=== PATIENT | male | born 1965 | race Caucasian/White ===

== ENCOUNTER → 2020-10-25 15:11 | Outpatient (CLI) | payer BC, SELFPAY ==
--- NOTE | ~2020-10-25 | MR_ITS ---
EXAMINATION: MR knee RT wo con DATE: 10/25/2020 15:52 INDICATION: 4 months of medial right knee pain. TECHNIQUE: Magnetic resonance imaging (MRI) of the right knee was performed without intravenous contr ast. Sequences included coronal PD-weighted FSE, coronal PD-weighted FS FSE, sagittal T2-weighted FS E, sagittal PD-weighted FS FSE and axial PD weighted fat saturated FSE. COMPARISON: None. FINDINGS: Medial compartment: Complex tear at the junction of the body and posterior horn of the medial meniscus with both a longit udinal horizontal tear plane as well as a radial tear plane which extends to the inner half of the me niscus. Diffuse mild partial-thickness cartilage loss along the medial tibial plateau and weightbeari ng medial femoral condyle with scattered shallow chondral surface regularity. No degenerative subchon dral changes. Lateral compartment: Lateral meniscus is normal. Additional partial thickness cartilage loss with chondral surface irregul arity along the anterior weightbearing lateral femoral condyle. Patellofemoral compartment: Articular cartilage is normal. Ligaments and tendons: Anterior and posterior cruciate ligaments are normal. The medial collateral ligament and fibular dick ateral ligament complex are normal. Patellar tendon is normal. Mild to moderate distal quadriceps ten dinopathy without discrete tear. The visualized medial and lateral hamstring tendons as well as the i liotibial band are normal. Fluid: Physiologic amount of fluid in the joint space. 4 mm low signal intensity loose osteochondral body in the recess posterior to the posterior cruciate ligament. Osseous/other: Small low signal intensity bone island at the lateral tibial plateau. Normal marrow signal. No fractu re or abnormal marrow replacing process. IMPRESSION: 1. Complex tear at the junction of the body and posterior horn of the medial meniscus. 2. Mild osteoarthritis with regions of moderate grade chondromalacia in the medial and lateral compar tments. 3. Mild to moderate distal quadriceps tendinopathy without discrete tear.. Reviewed, dictated and finalized at location A. IMPRESSION: 1. Complex tear at the junction of the body and posterior horn of the medial me niscus. 2. Mild osteoarthritis with regions of moderate grade chondromalacia in the med ial and lateral compartments. 3. Mild to moderate distal quadriceps tendinopathy without discrete tear..
== END ==
PROVIDERS: Visit Provider Orthopaedic Surgery
DX: S83.231A Complex tear of medial meniscus, current injury, right knee, initial encounter (principal); M17.11 Unilateral primary osteoarthritis, right knee; M94.261 Chondromalacia, right knee
CPT/HCPCS: 73721

== ENCOUNTER → 2020-12-21 04:36 | Outpatient (CLI) | payer BC, SELFPAY ==
[2020-12-21 18:46] LABS: SARS-CoV-2 RNA PCR Negative
== END ==
PROVIDERS: Visit Provider Orthopaedic Surgery
DX: Z01.812 Encounter for preprocedural laboratory examination (principal); Z20.822 Contact with and (suspected) exposure to COVID-19
CPT/HCPCS: C9803; U0003; U0005

== ENCOUNTER 2020-12-24 00:52 | Day surgery (SDC) | payer BC, SELFPAY ==
[2020-12-14 08:40] VITALS: BMI 28.3
--- NOTE | 2020-12-21 16:02 | WPDANESEPPF ---
Anes - Initial Pre Proc Eval Procedure: Operation Date: 12/24/20 10:30 Proposed Procedures p Right Knee Arthroscopy, Partial Meniscectomy - Kvng Kee MD Date/Time: 12/21/20 16:02 Surgeon: Kvng Kee MD Pre Op Diagnosis: right knee medial meniscal tear Patient Data Age: 55 Gender: M Height: 1.85 m Weight: 97.52 kg Allergies Allergy/AdvReac Type Severity Reaction Status Date / Time aspirin Allergy Severe Hives Verified 12/24/20 08:40 caffeine Allergy Intermediate PALPITATION Verified 12/24/20 08:40 S Home Medications Medication Instructions Recorded Confirmed Type multivitamin 1 tablet PO DAILY 09/05/20 12/24/20 History loratadine [Claritin] 10 mg PO DAILY 12/14/20 12/24/20 History omega-3 fatty acids-vitamin E 1 cap PO DAILY 12/14/20 12/24/20 History [Fish Oil] rivaroxaban 10 mg tablet 10 mg PO DAILY #14 tablet 12/18/20 12/18/20 Rx Patient hx anesthesia problems: none Family hx anesthesia problems: none PMFSH Past Medical History Medical History Arthritis of knee, right Surgical History Surgical History H/O left knee surgery left ACL 2011 Social History Social History Smoking status: Never smoker Alcohol intake: current Drinks per week: 2 Substance use: never Substance use type: does not use Living arrangements: with family Gender identity (if verbalized by the patient): Male Spiritual care concerns: No Anes - Eval Final PreProcedure Day of Procedure 12/21/20 16:02 Patient weight: overweight Heart: regular rate and rhythm Lungs: clear to auscultation and normal air movement Airway: Mallampati scale class II Neurological: alert and oriented Last oral intake: >/= 8 hours ASA classification: II Emergent: no Anesthetic plan: proceed Anesthesia type and monitoring: general LMA Informed Consent: The patient's anesthetic plan and its attendant risks and benefits were discussed with the patient/family/POA. Questions were solicited and answers provided to the satisfaction of the patient/family/POA.
[2020-12-24] VITALS (8 sets, daily range): BP systolic 125–139; BP diastolic 76–92; PULSE 52–79; RESP 12–19; TEMP 36.1–36.2; O2SAT 99–100; BMI 27.9
[2020-12-24] MEDS: ACETAMINOPHEN 500 MG TABLET 1000 MG PO (08:47)
[2020-12-24] MEDS: LACTATED RINGERS 1,000 ML 30 ML IV CONT ×2 (09:14→11:34)
--- NOTE | 2020-12-24 09:54 | WPDHPUPDATE1 ---
History and Physical Update Update Date/Time: 12/24/20 09:54 History and Physical has been reviewed, including an updated exam of the patient. There are NO changes in the patient's condition. Risks, benefits, and alternatives have been discussed and questions answered. Patient agrees to proceed with procedure.
[2020-12-24] MEDS: ceFAZolin 2 GM/D5W 50 ML 2 GM/50 ML BAG IVPB (10:37)
--- NOTE | 2020-12-24 11:35 | W.PM.PROC2 ---
Procedure Note - Detailed Date of Procedure 12/24/20 Pre-op Diagnosis right knee medial meniscal tear Post-op Diagnosis same Procedure Performed Right knee arthroscopy, partial medial meniscectomy Surgeon Kvng Kee MD Anesthesia general Indications See op note Description of Procedure The patient was identified and proper site identified. He was taken to the operating room and transferred to the OR table placing her supine taking care to pad the torso and extremities. After general anesthetic induction and intubation, a nonsterile tourniquet was placed high on the right thigh but was not used. The right lower extremity was positioned, prepped and draped in usual sterile fashion. 10 cc of 1% lidocaine was injected into the subcutaneous tissue in the area of the portals at start of the procedure, and an additional 10 at the end. The portals were established and the arthroscopy was carried out. Articular cartilage in all three compartments was inspected. Most pronounced changes were medially followed by anteriorly and then laterally. In all three compartments a grade 2 and three changes extensively. Loose fibrillated articular cartilage was gently debrided. Lateral meniscus was in continuity. Anterior posterior cruciate ligaments were intact. There is a medial plica which was resected as well as some focal medial synovitis overlying the anterior portion of the medial meniscus. Medial meniscus itself had complex tearing from the posterior horn into the midbody. This was debrided back to a stable rim with basket forceps and a shaver. Arthrocare Wand was used for hemostasis. The knee was flushed with a copious amount of arthroscopic fluid and equipment was removed. Portals were closed with three O nylon suture and a sterile dressing was applied. He tolerated the procedure well, was awakened, extubated and taken to recovery area in stable condition. There were no known intraoperative complications. Estimated blood loss was negligible. He received perioperative antibiotics. Estimated Blood Loss 20 Tourniquet Time 0 Drains No Packing No Pathology none sent Complications No immediate complications Condition stable Disposition PACU
== END 2020-12-24 13:14 | disposition home or self-care (01) ==
PROVIDERS: PCP Emergency Medicine; Visit Provider Orthopaedic Surgery
PROC: (CPT 29870; principal; 2020-12-24 10:30)
DX: M23.321 Other meniscus derangements, posterior horn of medial meniscus, right knee (principal); M65.861 Other synovitis and tenosynovitis, right lower leg; M17.11 Unilateral primary osteoarthritis, right knee; Z79.01 Long term (current) use of anticoagulants
CPT/HCPCS: 29881; A9270; J0690; J1100; J2250; J2405; J2704; J3010; J7120

== ENCOUNTER 2025-04-29 17:10 | Emergency (ER) | payer BC, SELFPAY ==
--- NOTE | ~2025-04-29 | XR_ITS ---
EXAMINATION: XR shoulder LT min 2V, 04/29/2025 17:48 CDT HISTORY: pain COMPARISON: No comparisons available. Findings: No acute fracture or malalignment. No significant degenerative changes. Soft tissues unremarkable. Impression: No acute fracture or malalignment. Reviewed, dictated and finalized at location P. Impression: No acute fracture or malalignment.
[2025-04-29 17:16] VITALS: BP 156/74; PULSE 81; RESP 18; TEMP 36.6; O2SAT 100
--- NOTE | 2025-04-29 17:19 | ED_ITS ---
HPI - Extremity Injury (Upper) General Chief Complaint: Extremity Injury, Upper Stated Complaint: left shoulder injury Time Seen by Provider: 04/29/25 17:13 History of Present Illness HPI narrative: 60-year-old otherwise healthy male presenting to the emergency depart with left shoulder pain. Patient states his foot slipped while he was getting out of a grain bin any hung on with his left arm and felt a potential tear. Has significant pain and now restricted range of motion. Took Tylenol prior to arrival with some mild improvement. Elbow and wrist without any injury. Full outboard system operator strength. Denies any paresthesias or numbness. Pain is localized to the anterior portion of left shoulder and he has restricted range of motion with forward flexion and abduction. No previous injuries to the shoulder or any previous fractures/surgery to this area. Related Data Home Medications ?Medication ?Instructions ?Recorded ?Confirmed ?Last Taken ?Type multivitamin 1 tablet PO DAILY 09/05/20 0 03/18/21 12/21/20 History loratadine 10 mg tablet (Claritin) 10 mg PO DAILY 12/0403/18/21 12/22/20 History omega-3 fatty acids-vitamin E 1 cap PO DAILY 12/14/20 03/18/21 12/21/20 History 1,000 mg capsule Allergies Allergy/AdvReac Type Severity Reaction Status Date / Time aspirin Allergy Severe Hives Verified 04/29/25 17:18 caffeine Allergy Intermediate PALPITATION Verified 04/29/25 17:18 S Review of Systems Review of Systems: As reviewed above in HPI [facility] Past Medical History Medical History Arthritis of knee, right Surgical History Surgical History History of arthroscopy of right knee Partial medial meniscectomy December 24, 2020 H/O left knee surgery left ACL 2010 Social History Social History Smoking status: Never smoker Alcohol intake: current Drinks per week: 2 Substance use: never Substance use type: does not use Living arrangements: with family Occupation/Education: occupation Gender identity (if verbalized by the patient): Male Spiritual care concerns: No Exam Narrative: GENERAL: [Well-appearing, well-nourished, and in no acute distress.] HEAD: [Normocephalic, atraumatic.] EYES: [PERRLA and EOMI.] ENT: Nares clear, no rhinorrhea or epistaxis. Mucous membranes moist. NECK: Supple. CHEST: [Clear to auscultation. No respiratory distress.] HEART: [Regular rate and rhythm]. No murmur heard. [Normal peripheral pulses.] ABDOMEN: [Soft, nondistended], [nontender], [No rigidity or guarding] EXTREMITIES: Tenderness to palpation over the anterior left shoulder with restricted passive and active range of motion with forward flexion and abduction causing significant pain. No pain over the scapula or the midline spine. Distal neuro vasculature intact with 2+ radial pulses and good outboard system operator strength. Able to range the elbow and wrist without difficulty. No overlying skin changes or step-offs. SKIN: Warm, dry, no rash. NEURO: [No focal deficits]. Alert and oriented [x3.] PSYCH: [Normal mood and affect.] Course Vital Signs Vital signs: Vital Signs Temperature 36.6 C 04/29/25 17:16 Pulse Rate 81 04/29/25 17:16 Respiratory Rate 18 04/29/25 17:16 Blood Pressure 156/74 H 04/29/25 17:16 Pulse Oximetry 100 04/29/25 17:16 Oxygen Delivery Room Air 04/29/25 17:16 Temperature 36.6 C 04/29/25 17:16 Pulse Rate 81 04/29/25 17:16 Respiratory Rate 18 04/29/25 17:16 Blood Pressure 156/74 H 04/29/25 17:16 Pulse Oximetry 100 04/29/25 17:16 Oxygen Delivery Room Air 04/29/25 17:16 MDM - Extremity Injury (Upper) MDM Narrative Medical decision making narrative: 60-year-old otherwise healthy male presenting to the emergency depart with left shoulder pain. Patient states his foot slipped while he was getting out of a grain bin any hung on with his left arm and felt a potential tear. Has significant pain and now restricted range of motion. Took Tylenol prior to arrival with some mild improvement. Elbow and wrist without any injury. Full outboard system operator strength. Denies any paresthesias or numbness. Pain is localized to the anterior portion of left shoulder and he has restricted range of motion with forward flexion and abduction. No previous injuries to the shoulder or any previous fractures/surgery to this area. Tenderness to palpation over the anterior left shoulder with restricted passive and active range of motion with forward flexion and abduction causing significant pain. No pain over the scapula or the midline spine. Distal neuro vasculature intact with 2+ radial pulses and good outboard system operator strength. Able to range the elbow and wrist without difficulty. No overlying skin changes or step-offs. Patient is hemodynamically stable. Exam findings concerning for potential rotator cuff injury versus less likely fracture/dislocation. Patient given intramuscular Toradol and Dilaudid and x-rays obtained. X-ray showed no acute abnormalities. Patient's symptoms consistent with rotator cuff injury or pathology. Pain improved with treatments but limited range of motion still present. He called his own orthopedic doctor and has an appointment on Thursday with Dr. Dsouza's office. Patient given pain control medications and safe for discharge home at this time. Medical Records Attestation: I reviewed the patient's medical records. Imaging Data Attestation: I personally reviewed and interpreted this imaging study as follows: My impression: Impressions Shoulder X-Ray 04/29/25 18:00 Impression: No acute fracture or malalignment. Discharge Plan Discharge Clinical Impression: Acute shoulder pain, Rotator cuff injury Patient Disposition: Home Condition: Stable Instructions: Antibiotic Form, Rotator Cuff Injury (ED), Rotator Cuff Injury Exercises (DC), Shoulder Immobilizer (ED) Additional Instructions: X-ray shows no bony abnormalities or malalignment so I do suspect that you injury is in the rotator cuff today based on exam and history. We will send you home with pain medicines to control the pain and swelling. Wear the immobilizer for comfort and pain control. Follow-up with the orthopedic doctor on Thursday. Return with any worsening pain or new concerns. Patient Language: [place] Prescriptions: New ketorolac 10 mg tablet 10 mg PO Q8H PRN (Reason: pain) 5 Days Qty: 20 0RF Rx Instructions: maximum total duration of 5 days from all oral, intranasal, or parenteral formulations oxycodone 5 mg tablet 5 mg PO Q8H PRN (Reason: pain) Qty: 10 0RF No Action multivitamin Tablet 1 tablet PO DAILY loratadine [Claritin] 10 mg Tablet 10 mg PO DAILY omega-3 fatty acids-vitamin E 1,000 mg Capsule 1 cap PO DAILY Follow-up/Referrals: Dorothy,Nahum Post MD [Primary Care Provider, Unknown] Jose Luis Hernandez MD [Physician, Orthopedics] - 2 Days Referral Note: Rotator cuff injury Time of Disposition: 18:12
[2025-04-29] MEDS: KETOROLAC 30 MG/ML VIAL (*BKC) IM (17:27)
[2025-04-29] MEDS: HYDROmorphone HCL INJ (*CRX) 1 MG/ML SYR IM (17:27)
== END 2025-04-29 18:22 | disposition home or self-care (01) ==
PROVIDERS: Emergency Provider Student in an Organized Health Care Education/Training Program; PCP Emergency Medicine
DX: M25.512 Pain in left shoulder (principal); S46.002A Unspecified injury of muscle(s) and tendon(s) of the rotator cuff of left shoulder, initial encounter; X58.XXXA Exposure to other specified factors, initial encounter
CPT/HCPCS: 73030; 96372; 99284; J1171; J1885

== ENCOUNTER 2025-05-11 13:06 | Outpatient (CLI) | payer BC, SELFPAY ==
--- OUTSIDE RECORDS SUMMARY | 2025-05-10 06:49 | XMS_ITS | Encounter Summary ---
Author Organization [facility] Address [address] [place] [address] Care Team Providers Care Chief Executive Officer Name Role Phone Nahum De La Cruz MD Primary Care Provider [phone] Reason for Referral * MRI/CAT/PET Scan (Routine) - Closed Specialty Diagnoses / Procedures Referred By Yen esqueda Referred To Contact Radiology Diagnoses Strain of muscle(s) and tendon(s) of the rotator cuff of left shoulder, initial encounter Procedures MRI Shoulder Left WO Contrast Mejia Michel MD [address] [place] [address] Phone: tel: fax: [address] [phone] Referral ID Status Reason Start Date Expiration Date Visits Re quested Visits Authorized [id number] Closed 05/02/2025 07/30/2025 1 1 L MAINTENANCE TECHNICIAN Reason for Visit * MRI/CAT/PET Scan (Routine) - Closed Specialty Diagnoses / Procedures Referred By Yen esqueda Referred To Contact Radiology Diagnoses Strain of muscle(s) and tendon(s) of the rotator cuff of left shoulder, initial encounter Procedures MRI Shoulder Left WO Contrast Mejia Michel MD [address] [address] Phone: tel: fax: [address] [phone] Referral ID Status Reason Start Date Expiration Date Visits Re quested Visits Authorized [id number] Closed 05/02/2025 07/30/2025 1 1 Encounter Details Date Type Department Care Team (Latest Contact Info) Description 05/10/2025 6:49 AM HOTEL MAINTENANCE TECHNICIAN - 05/10/2025 11:59 PM HOTEL MAINTENANCE TECHNICIAN Hospital Encounter [address] [address] Strain of muscle(s) and tendon(s) of the rotator cuff of left shoulder, initial encounter Discharge Disposition: Discharge to home or self care Social History Tobacco Use Types Packs/Day Years Used Date Smoking Tobacco: Never Assessed Sex and Gender Information Value Date Recorded Sex Assigned at Not on file Legal Sex Male 10:51 AM CDT Gender Identity Not on file Sexual Orientation Not on file documented as of this encounter Discharge Disposition Disposition Code Departure Means Destination Discharge to home or self care documented in this encounter Plan of Treatment Not on file documented as of this encounter Procedures Procedure Name Priority Date/Time Associated Diagnosis Comments MRI SHOULDER LEFT WO CONTRAST Schedule Routine, Read Routine (OP Routine) 05/10/2025 7:45 AM HOTEL MAINTENANCE TECHNICIAN Strain of muscle(s) and tendon(s) of the rotator cuff of left shoulder, initial encounter documented in this encounter Results * MRI Shoulder Left WO Contrast (05/10/2025 7:45 AM HOTEL MAINTENANCE TECHNICIAN) Anatomical Region Laterality Modality Upper Extremities Left Magnetic Reson ance 05/10/2025 8:03 AM HOTEL MAINTENANCE TECHNICIAN Impressions 05/10/2025 8:03 AM HOTEL MAINTENANCE TECHNICIAN 1. 5 x 3.5 cm full-thickness tear of the supraspinatus and infraspinatus superimposed on cuff tendinosis. Feathery edema involving the supraspinatus and infraspinatus is suggestive of an acute tear. 2. Moderate left acromioclavicular joint osteoarthritis. Erosions and marrow edema may represent a superimposed component of distal clavicular osteolysis. 3. Posterior superior glenoid labral tear extending from 11:00-10:00. 4. Mild left glenohumeral chondrosis with a moderate-sized shoulder effusion and decompression. Electronically signed by: Vikash Huerta M.D. Narrative 05/10/2025 8:03 AM HOTEL MAINTENANCE TECHNICIAN EXAMINATION: 1. MRI left shoulder without contrast HISTORY: Anterior left shoulder pain. Rotator cuff tear FINDINGS: Comparison not available. Multiplanar multisequence MR examination of the left shoulder was performed with a local coil. There is a type 1 acromion. The coracoacromial ligament is thickened. Moderate acromioclavicular joint osteoarthritis is present with erosions and marrow edema. The subacromial subdeltoid bursa communicates with the joint space. The rotator cuff muscle bulk is normal. Mild feathery edema involving the supraspinatus and infraspinatus. The subscapularis is intact. The biceps tendon remains within the bicipital groove. 5 x 3.5 cm full-thickness tear of the supraspinatus and infraspinatus is present superimposed on cuff tendinosis. Tendinopathic margins are retracted medially. Posterior superior glenoid labral tear is present extending from 11:00-10:00. The labrum below the equator is normal. Mild chondrosis. Moderate-sized shoulder effusion is present with decompression. No loose bodies are identified. Procedure Note Vikash Huerta MD - 05/10/2025 EXAMINATION: 1. MRI left shoulder without contrast HISTORY: Anterior left shoulder pain. Rotator cuff tear FINDINGS: Comparison not available. Multiplanar multisequence MR examination of the left shoulder was performed with a local coil. There is a type 1 acromion. The coracoacromial ligament is thickened. Moderate acromioclavicular joint osteoarthritis is present with erosions and marrow edema. The subacromial subdeltoid bursa communicates with the joint space. The rotator cuff muscle bulk is normal. Mild feathery edema involving the supraspinatus and infraspinatus. The subscapularis is intact. The biceps tendon remains within the bicipital groove. 5 x 3.5 cm full-thickness tear of the supraspinatus and infraspinatus is present superimposed on cuff tendinosis. Tendinopathic margins are retracted medially. Posterior superior glenoid labral tear is present extending from 11:00-10:00. The labrum below the equator is normal. Mild chondrosis. Moderate-sized shoulder effusion is present with decompression. No loose bodies are identified. IMPRESSION: 1. 5 x 3.5 cm full-thickness tear of the supraspinatus and infraspinatus superimposed on cuff tendinosis. Feathery edema involving the supraspinatus and infraspinatus is suggestive of an acute tear. 2. Moderate left acromioclavicular joint osteoarthritis. Erosions and marrow edema may represent a superimposed component of distal clavicular osteolysis. 3. Posterior superior glenoid labral tear extending from 11:00-10:00. 4. Mild left glenohumeral chondrosis with a moderate-sized shoulder effusion and decompression. Electronically signed by: Vikash Huerta M.D. Mejia Mcihel MD IMG MRI PROCEDURES Final Res ult documented in this encounter Visit Diagnoses Diagnosis Strain of muscle(s) and tendon(s) of the rotator cuff of left shoulder, initial encounter documented in this encounter Care Teams Chief Executive Officer Relationship Specialty Start Date End Date Nahum De La Cruz MD [address] [place] [address] PCP - General Family Practice 05/03/25 documented as of this encounter
--- NOTE | 2025-05-11 13:38 | ECG_ITS ---
Test Date: 2025-05-11 13:43:41 Measurements Intervals Wesley Rate: 78 P: 52 WI: 161 QRS: -31 QRSD: 99 T: 42 QT: 368 QTc: 422 Interpretive Statements SINUS RHYTHM MARKED LEFT AXIS DEVIATION [QRS AXIS < -30] SEPTAL MYOCARDIAL INFARCTION [40+ ms Q WAVE IN V1/V2], OF INDETERMINATE AGE WARNING: DATA QUALITY MAY AFFECT INTERPRETATION No previous ECG available for comparison Electronically Signed On 05-11-2025 14:57:58 FUEL YARD OPERATOR by Gerald Bess M.D.
--- OUTSIDE RECORDS SUMMARY | 2025-05-11 19:55 | XMS_ITS | Encounter Summary ---
Author Organization [facility] Address [address] [facility] [place] [address] Care Team Providers Care Asphalt Distributor Tender Name Role Phone Unavailable Primary Care Provider Unavailabl e Encounter Details Date Type Department Care Team (Late st Contact Info) Description 09/30/2018 Lab Requisition [facility] Care DermPath Lab [address] 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 Gender Identity Not on file Sexual Orientation Not on file documented as of this encounter Plan of Treatment Not on file documented as of this encounter Procedures Procedure Name Priority Date/Time Associated Diagnosis Comments DERMATOPATHOLOGY Routine 09/29/2018 12:0 0 AM CDT documented in this encounter Results * DERMATOPATHOLOGY (09/29/2018 12:00 AM CDT) Case Report Dermatopathology Report Case: [id number] Authorizing Provider: Nessa Moffett MD Collected: 09/29/2018 12:00 AM Pathologist: Juany Mcnair MD Received: 09/30/2018 10:56 AM Specimens: A) - Skin, left cheek B) - Skin, left FA 9 1:23 PM CDT DERMATOPATHOLOGY LABORATORY Final Diagnosis Specimen A. 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 SKIN, left FA: SQUAMOUS CELL CARCINOMA IN SITU (SAMAYOA'S DISEASE) (D04.62) NOT PRESENT AT SAMPLED MARGIN 1:23 PM T DERMATOPATHOLOGY LABORATORY at 1323 CDT Clinical History A-B: R/O BCC, irritated non-healing 1:23 PM T DERMATOPATHOLOGY LABORATORY Gross Description Specimen A: Received is one formalin filled container labeled with the patient's name and designated left cheek. The specimen consists of a shave biopsy measuring 5x3x3 and 4x3x1 mm. Jar 0. Specimen B: Received is one formalin filled container labeled with the patient's name and designated left FA. The specimen consists of a shave biopsy measuring 6x5x2 mm. Jar 0. 1:23 PM [facility] DERMATOPATHOLOGY LABORATORY Microscopic Description Specimen A. SKIN, left cheek: There is hyperkeratosis alternating with parakeratosis. There is epidermal hyperplasia with disorderly maturation of keratinocytes with nuclear pleomorphism confined to the lower half of the epidermis. In addition, there is hypergranulosis and papillomatosis. This lesion is present at the margin of the specimen. Specimen B. SKIN, left FA: The epidermis shows parakeratosis, full thickness disorderly maturation of keratinocytes, mitoses at different levels, and dyskeratotic cells. This lesion is not present at the sampled margin of the specimen. 1:23 PM CDT DERMATOPATHOLOGY LABORATORY Disclaimer An external and internal positive and negative controls are appropriate for the histochemical, immunohistochemical and immunofluorescence stain(s) in this case (if any), except where stated explicitly. The performance characteristics of the stain(s) cited in this report were developed and its performance characteristic determined by the Dermatopathology Laboratory at [facility], directed by Dr. Cristofer Mcnair. These tests need not be, and therefore are not, approved by the [place] Food and Drug Administration. The tests are used for clinical purposes. Billing Codes Specimen Charges Stain Charges 95558 51803 1 1 1:23 PM CDT DERMATOPATHOLOGY LABORATORY Embedded Images 1:23 PM CDT DERMATOPATHOLOGY LABORATORY Pathology/Cytology TISSUE SPECIMEN FROM SKIN / Unknown 09/29/2018 09/30/2018 10:56 AM CDT Miscellaneous samples (specimen) TISSUE SPECIMEN FROM SKIN / Unknown 09/29/2018 09/30/2018 10:56 AM CDT Nessa Moffett MD LAB - PATHOLOGY/CYTOLOGY OR DERABLES Final Result DERMATOPATHOLOGY LABORATORY [facility] - Department of Dermatology [address] [place] [address], 5th Floor Lab [address] [phone] documented in this encounter Visit Diagnoses Not on filedocumented in this encounter
--- OUTSIDE RECORDS SUMMARY | 2025-05-11 19:55 | XMS_ITS | Encounter Summary ---
Author Organization [facility] Address [address] [place] [address] Care Team Providers Care Circus Hand Name Role Phone Unavailable Primary Care Provider Unavailabl e Encounter Details Date Type Department Care Team (Late st Contact Info) Description 11/11/2018 Lab Requisition [facility] Care DermPath Lab [address] [facility], [facility] [place] [address] Nessa Moffett MD [address] [facility] [address] [place] [address] Social History Tobacco Use Types Packs/Day Years Used Date Smoking Tobacco: Never Assessed Sex and Gender Information Value Date Recorded Sex Assigned at Not on file 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 Gender Identity Not on file Sexual Orientation Not on file documented as of this encounter Plan of Treatment Not on file documented as of this encounter Procedures Procedure Name Priority Date/Time Associated Diagnosis Comments DERMATOPATHOLOGY Routine 11/10/2018 12:0 0 AM CDT documented in this encounter Results * DERMATOPATHOLOGY (11/10/2018 12:00 AM CDT) Case Report Dermatopathology Report Case: [id number] Authorizing Provider: Nessa Moffett MD Collected: 11/10/2018 12:00 AM Pathologist: Juany Mcnair MD Received: 11/11/2018 10:49 AM Specimen: Skin, left FA 9 11:51 AM CDT DERMATOPATHOLOGY LABORATORY Final Diagnosis Specimen A. SKIN, left FA: DERMAL SCAR RESIDUAL SQUAMOUS CELL CARCINOMA NOT IDENTIFIED (L90.5) 9 11:51 AM CDT DERMATOPATHOLOGY LABORATORY at 1151 CDT Clinical History Bx proven SCCIS. Previous Bx: [id number]. Check margins. 11:51 AM CDT DERMATOPATHOLOGY LABORATORY Gross Description Specimen A: Received is one formalin filled container labeled with the patient's name and designated left FA. The specimen consists of a non-oriented ellipse of skin measuring [id number]. The epidermal surface consists of a centrally located 5x5mm previous biopsy site. The margin is inked green. The 12 o'clock and 6 o'clock tips are submitted in cassette 1. The remainder of the ellipse is serially sectioned and submitted in cassettes 2-3. Jar 0. 11:51 AM CDT DERMATOPATHOLOGY LABORATORY Microscopic Description Specimen A. SKIN, left FA: There are fibroblasts and collagen bundles oriented parallel to the skin surface. There are elongated blood vessels, some of which are oriented perpendicular to the skin surface. No residual squamous cell carcinoma is identified. 11:51 AM CDT DERMATOPATHOLOGY LABORATORY Disclaimer An external and internal positive and negative controls are appropriate for the histochemical, immunohistochemical and immunofluorescence stain(s) in this case (if any), except where stated explicitly. The performance characteristics of the stain(s) cited in this report were developed and its performance characteristic determined by the Dermatopathology Laboratory at [facility], directed by Dr. Cristofer Mcnair. These tests need not be, and therefore are not, approved by the [place] Food and Drug Administration. The tests are used for clinical purposes. Billing Codes Specimen Charges Stain Charges 54941 1 11:51 AM CDT DERMATOPATHOLOGY LABORATORY Embedded Images 11:51 AM CDT DERMATOPATHOLOGY LABORATORY Pathology/Cytolog y TISSUE SPECIMEN FROM SKIN / Unknown 11/10/2018 11/11/2018 10:49 AM CDT Nessa Moffett MD LAB - PATHOLOGY/CYTOLOGY OR DERABLES Final Result DERMATOPATHOLOGY LABORATORY [facility] - Department of Dermatology [address] [place] [address], 5th [place] [address], [facility] [phone] documented in this encounter Visit Diagnoses Not on filedocumented in this encounter
--- OUTSIDE RECORDS SUMMARY | 2025-05-11 19:55 | XMS_ITS | Clinical Summary ---
Author Organization [facility] Address [address] [place] [address] Care Team Providers Care Park Superintendent Name Role Phone Unavailable Primary Care Provider Unavailabl e Source Comments [facility],non-owned Affiliates and Associated Physician Practices is amultiple site organization consisting of ambulatory clinics and hospital sitesin [place], [place], [place] and [place]. This disclosure is being madepursuant to the Care Everywhere program and may not contain all information available regarding this patient. 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 Gender Identity Not on file Sexual Orientation Not on file Plan of Treatment Health Maintenance Due Date Last Done Comments COLOGUARD (AGES 45-75) - COL ON CA SCREENING 1967 COLON MONITORING 1967 COLONOSCOPY - COLON CA SCREENING 1967 CT COLONOGRAPHY - COLON CA SCREENING 1967 Colorectal Cancer Screening 1967 FIT - COLON CA SCREENING 1967 FLEX SIG - COLON CA SCREENING 1967 LIPID TESTING 1967 HIV SCREENING 1982 HEPATITIS C SCREENING 04/13/1985 DTAP/TDAP/TD VACCINES (1 - Tdap) 1986 HEPATITIS B VACCINE (1 of 3 - 19+ 3-dose series) 1986 PNEUMOCOCCAL VACCINE 50+ (1 of 1 - PCV) 2017 ZOSTER VACCINE (1 of 2) 2017 DEPRESSION SCREENING 07/06/2024 COVID-19 VACCINE (1 - 2023-2 5 season) 2025 INFLUENZA VACCINE (#1) 2025 HIB VACCINE Aged Out No longer eligi ble based on patient's age to complete this topic HPV VACCINE Aged Out No longer eligi ble based on patient's age to complete this topic MENINGOCOCCAL (Group B) VACC INE SHARED DECISION-MAKING Aged Out No longer eligibl e based on patient's age to complete this topic MENINGOCOCCAL GROUPS A/C/Y/W VACCINE Aged Out No longer eligible b ased on patient's age to complete this topic Insurance
--- OUTSIDE RECORDS SUMMARY | 2025-05-11 19:55 | XMS_ITS | Clinical Summary ---
Author Organization [facility] Address [address] [place] [address] Care Team Providers Care Activities Leader Name Role Phone Nahum De La Cruz MD Primary Care Provider [phone] Encounters Date Type Department Care Team Description 05/10/2025 6:49 AM PAWN SHOP KEEPER - 05/10/2025 11:59 PM PAWN SHOP KEEPER Hospital Encounter [address] [address] Strain of muscle(s) and tendon(s) of the rotator cuff of left shoulder, initial encounter Discharge Disposition: Discharge to home or self care from Last 3 Months Social History Tobacco Use Types Packs/Day Years Used Date Smoking Tobacco: Never Assessed Sex and Gender Information Value Date Recorded Sex Assigned at Not on file Legal Sex Male 10:51 AM CDT Gender Identity Not on file Sexual Orientation Not on file Plan of Treatment Health Maintenance Due Date Last Done Comments Colon Cancer Screening-Colonoscopy 1967 Depression Screening 1967 Hepatitis C Screening 1967 Prostate Cancer Screening-PSA 1967 DTaP/Tdap/Td Vaccine (1 - Tdap) 1978 Hepatitis B Screening 1985 Regular Well Visit/Exam 18-64 1985 Zoster Vaccine (1 of 2) 2017 Influenza Vaccine (#1) 2025 Pneumococcal vaccine <65 Aged Out No longer eligible based on patient's age to complete this topic Procedures Procedure Name Priority Date/Time Associated Diagnosis Comments MRI SHOULDER LEFT WO CONTRAST Schedule Routine, Read Routine (OP Routine) 05/10/2025 7:45 AM PAWN SHOP KEEPER Strain of muscle(s) and tendon(s) of the rotator cuff of left shoulder, initial encounter from Last 3 Months Results * MRI Shoulder Left WO Contrast (05/10/2025 7:45 AM PAWN SHOP KEEPER) Anatomical Region Laterality Modality Upper Extremities Left Magnetic Reson ance 05/10/2025 8:03 AM PAWN SHOP KEEPER Impressions 05/10/2025 8:03 AM PAWN SHOP KEEPER 1. 5 x 3.5 cm full-thickness tear [...] Vikash Huerta M.D. Narrative 05/10/2025 8:03 AM PAWN SHOP KEEPER EXAMINATION: 1. MRI left shoulder without contrast [...] Electronically signed by: Vikash Huerta M.D. Mejia Michel MD [facility] MRI PROCEDURES Final Res ult from Last 3 Months Insurance [facility] Care Teams Activities Leader Relationship Specialty Start Date End Date Nahum De La Cruz MD [address] [place] [id number] PCP - General Family Practice 05/03/25
--- OUTSIDE RECORDS SUMMARY | 2025-05-11 19:55 | XMS_ITS | Clinical Summary ---
Author Organization [facility] Address [facility] [place] [address] Care Team Providers Care Valve Repairer Name Role Phone Nahum De La Cruz MD Primary Care Provider [phone] Allergies Active Allergy Reactions Criticality Noted Date Comments Aspirin Hives 12/14/2015 Caffeine Palpitations Low 10/27/2022 Medications Multiple Vitamin (MULTIVITAMIN ADULT OR) Take 1 tablet daily. Active loratadine (CLARITIN) 10 MG tablet Take 1 tablet (10 mg total) by mouth daily. Active albuterol sulfate HFA (PROAIR HFA) 108 (90 Base) MCG/ACT inhalerIndicatio ns:Viral bronchitis 2 puffs every 4 hours as needed for cough/wheez ing 18 g 10/27/2022 Active dextromethorphan -guaiFENesin ER (MUCINEX DM) 30-600 MG TABLET SR 12 HR 12 hr tabletIndication s:Acute viral bronchitis Take 1 tablet by mouth every 12 (twelve) hours as needed. 28 tablet 10/31/2022 Active Social History Tobacco Use Types Packs/Day Years Used Date Smoking Tobacco: Never Smokeless Tobacco: Never Tobacco Cessation:Counseling Given: Not Answered Sex and Gender Information Value Date Recorded Sex Assigned at Male 12/22/2024 1:20 PM CDT Legal Sex Male 7:19 PM CDT Gender Identity Not on file Sexual Orientation Not on file Last Filed Vital Signs Vital Sign Reading Time Taken Comments Blood Pressure 168/100 10/31/2022 11:36 AM CDT Pulse 80 10/31/2022 11:36 AM CDT Temperature 36.6 C (97.8 F) 10/31/2022 11:36 AM CDT Respiratory Rate 18 10/31/2022 11:36 AM CDT Oxygen Saturation 95% 10/31/2022 11:36 AM CDT Inhaled Oxygen Concentration - - Weight 101.2 kg (223 lb) 10/31/2022 11:36 AM CDT Height 177.8 cm (5' 10) 10/31/2022 11:36 AM CDT Body Mass Index 32 10/31/2022 11:36 AM CDT Plan of Treatment Health Maintenance Due Date Last Done Comments Colorectal Cancer Screening Colonoscopy (10 Years) 1967 Annual Physical 1970 Hepatitis C 1985 DTaP, Tdap and Td Vaccines ( 1 - Tdap) 1986 Hepatitis B Vaccines (1 of 3 - 19+ 3-dose series) 1986 Pneumococcal Vaccine: 50+ Ye ars (1 of 1 - PCV) 2017 Zoster Vaccines (1 of 2) 2017 COVID-19 Vaccine (2024-2 6 season) 2025 Influenza Adult (#1) 2025 Hepatitis A Vaccines Aged Out No long er eligible based on patient's age to complete this topic Meningococcal B Vaccine Aged Out No l onger eligible based on patient's age to complete this topic Meningococcal Vaccine Aged Out No marco batool eligible based on patient's age to complete this topic RSV Immunizations Under 20 Months Aged Out No longer eligible based on patient's age to complete this topic Insurance [facility] Care Teams Valve Repairer Relationship Specialty Start Date End Date Nahum De La Cruz MD [address] [place] [id number] PCP - General FAMILY PRACTICE 12/11/21
--- OUTSIDE RECORDS SUMMARY | 2025-05-11 19:55 | XMS_ITS | Patient Health Record ---
Author Organization [facility] Address [address] [place], [place] [address] Care Team Providers Care General Engineer Name Role Phone SCOTT DELUNA Unavailable [phone] Nahum De La Cruz Unavailable Unavailable Reason For Referral No Information Medications Medication SIG (Take, Route, Frequency, Duration) Notes Start Date End Date Status Medrol Dosepak ORAL Medrol DosepakOr iginal MedicationMedrol Dosepak *Reorder from [employer] for eRx and Interaction Alerts* 04/25/2019 Active Social History Social History Additional Details Category Social Info Options Details Migrated Social History Migrated Social History History of tobacco use : , Smoking Status : Former smoker , Alcohol intake : Plan Of Treatment No Information Insurance Providers Payer Name Payer Address Payer Phone Subscriber Number Group Number Insured Name Patient Relationship to Insured Coverage Start Date Coverage End Date [facility] ([facility] ATTN CLAIMS [address] [place] [address] [id number] ALY MERCADO Self - patient is the insured
--- OUTSIDE RECORDS SUMMARY | 2025-05-11 19:55 | XMS_ITS | Encounter Summary ---
Author Organization [facility] Address [address] [place] [address] Care Team Providers Care Ground Source Heat Pump Technician Name Role Phone Unavailable Primary Care Provider Unavailabl e Encounter Details Date Type Department Care Team (Late st Contact Info) Description 07/23/2020 Lab Requisition [facility] DermPath Lab [address] [place] [address] Anna Darby MD [address] [place] [address] Social History Tobacco Use Types Packs/Day Years Used Date Smoking Tobacco: Never Assessed Sex and Gender Information Value Date Recorded Sex Assigned at Not on file Legal Sex Male 5:42 PM DESKTOP 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 Gender Identity Not on file Sexual Orientation Not on file documented as of this encounter Plan of Treatment Not on file documented as of this encounter Procedures Procedure Name Priority Date/Time Associated Diagnosis Comments DERMATOPATHOLOGY Routine 07/19/2020 3:27 AM DESKTOP 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 documented in this encounter Results * DERMATOPATHOLOGY (07/19/2020 3:27 AM DESKTOP 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) Case Report Dermatopathology Report Case: [id number] Authorizing Provider: Anna Darby MD Collected: 07/19/2020 03:27 AM Ordering Location: [facility] Care DermPath Lab Received: 07/23/2020 10:32 AM Pathologist: Juany Mcnair MD Specimen: Skin, right chest 1 2:53 PM DESKTOP 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 DERMATOPATHOLOGY LABORATORY Final Diagnosis Specimen A. SKIN, right chest: DERMAL SCAR RESIDUAL BASAL CELL CARCINOMA NOT IDENTIFIED (L90.5) 1 2:53 PM DESKTOP 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 DERMATOPATHOLOGY LABORATORY at 1453 DESKTOP 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 Clinical History R/O BCC biopsy proven. 1 2:53 PM [facility] DERMATOPATHOLOGY LABORATORY Gross Description Specimen A: Received is one formalin filled container labeled with the patient's name and designated right chest. The specimen consists of a non-oriented ellipse of skin measuring [id number]. The epidermal surface consists of a centrally located 5x3mm lesion. The margin is inked green. The 12 o'clock and 6 o'clock tips are submitted in cassette 1. The remainder of the ellipse is serially sectioned and submitted in cassettes 2-3. Jar 0. 1 2:53 PM [facility] DERMATOPATHOLOGY LABORATORY Microscopic Description Specimen A. SKIN, right chest: There are fibroblasts and collagen bundles oriented parallel to the skin surface. There are elongated blood vessels, some of which are oriented perpendicular to the skin surface. No basal cell carcinoma is identified. 1 2:53 PM [facility] DERMATOPATHOLOGY LABORATORY Disclaimer An external and internal positive and negative controls are appropriate for the histochemical, immunohistochemical and immunofluorescence stain(s) in this case (if any), except where stated explicitly. The performance characteristics of the stain(s) cited in this report were developed and its performance characteristic determined by the Dermatopathology Laboratory at [facility], directed by Dr. Cristofer Mcnair. These tests need not be, and therefore are not, approved by the [place] Food and Drug Administration. The tests are used for clinical purposes. Billing Codes Specimen Charges Stain Charges 61979 1 1 2:53 PM [facility] DERMATOPATHOLOGY LABORATORY Embedded Images 1 2:53 PM [facility] DERMATOPATHOLOGY LABORATORY Pathology/Cytolo gy TISSUE SPECIMEN FROM SKIN / Unknown 07/19/2020 3:27 AM DESKTOP 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 07/23/2020 10:32 AM [facility] us Anna Darby MD LAB - PATHOLOGY/CYTOLOGY ORDERA BLES Final Result DERMATOPATHOLOGY LABORATORY [facility] - Department of Dermatology [address] [place] [address], [facility] [phone] documented in this encounter Visit Diagnoses Not on filedocumented in this encounter
--- OUTSIDE RECORDS SUMMARY | 2025-05-11 19:55 | XMS_ITS | Encounter Summary ---
Author Organization [facility] Address [address] [place] [address] Care Team Providers Care Customer Relations Advisor Name Role Phone Unavailable Primary Care Provider Unavailabl e Encounter Details Date Type Department Care Team (Late st Contact Info) Description 06/13/2020 Lab Requisition [facility] DermPath Lab [address] [facility], [facility] [place] [address] Nessa Moffett MD [address] [facility] [address] [place] [address] Social History Tobacco Use Types Packs/Day Years Used Date Smoking Tobacco: Never Assessed Sex and Gender Information Value Date Recorded Sex Assigned at Not on file Legal Sex Male 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 Gender Identity Not on file Sexual Orientation Not on file documented as of this encounter Plan of Treatment Not on file documented as of this encounter Procedures Procedure Name Priority Date/Time Associated Diagnosis Comments DERMATOPATHOLOGY Routine 06/12/2020 12:0 0 AM NETWORK 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 documented in this encounter Results * DERMATOPATHOLOGY (06/12/2020 12:00 AM NETWORK 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) Case Report Dermatopathology Report Case: [id number] Authorizing Provider: Nessa Moffett MD Collected: 06/12/2020 12:00 AM Ordering Location: [facility] Care DermPath Lab Received: 06/13/2020 12:47 PM Pathologist: Juany Mcnair MD Specimen: Skin, right chest 0 4:10 PM NETWORK 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 DERMATOPATHOLOGY LABORATORY Final Diagnosis Specimen A. SKIN, right chest: BASAL CELL CARCINOMA, SUPERFICIAL MULTIFOCAL (C44.519) 0 4:10 PM NETWORK 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 DERMATOPATHOLOGY LABORATORY at 1610 NETWORK 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 Clinical History R/O BCC, irritated. 0 4:10 PM NETWORK 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 DERMATOPATHOLOGY LABORATORY Gross Description Specimen A: Received is one formalin filled container labeled with the patient's name and designated right chest. The specimen consists of a shave measuring [id number]. Jar 0. 0 4:10 PM [facility] DERMATOPATHOLOGY LABORATORY Microscopic Description Specimen A. SKIN, right chest: Attached to the undersurface of the epidermis, there are small aggregates of basaloid cells with a high nuclear to cytoplasmic ratio and peripheral palisading. 0 4:10 PM [facility] DERMATOPATHOLOGY LABORATORY Disclaimer An external and internal positive and negative controls are appropriate for the histochemical, immunohistochemical and immunofluorescence stain(s) in this case (if any), except where stated explicitly. The performance characteristics of the stain(s) cited in this report were developed and its performance characteristic determined by the Dermatopathology Laboratory at [facility], directed by Dr. Cristofer Mcnair. These tests need not be, and therefore are not, approved by the [place] Food and Drug Administration. The tests are used for clinical purposes. Billing Codes Specimen Charges Stain Charges 39414 1 0 4:10 PM NETWORK 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 DERMATOPATHOLOGY LABORATORY Embedded Images 0 4:10 PM [facility] DERMATOPATHOLOGY LABORATORY Pathology/Cytolog y TISSUE SPECIMEN FROM SKIN / Unknown 06/12/2020 06/13/2020 12:47 PM NETWORK 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 Nessa Moffett MD LAB - PATHOLOGY/CYTOLOGY OR DERABLES Final Result DERMATOPATHOLOGY LABORATORY [facility] - Department of Dermatology [address] [place] [address], [facility] [phone] documented in this encounter Visit Diagnoses Not on filedocumented in this encounter
== END 2025-05-11 13:07 | disposition home or self-care (01) ==
LOC: ANHSURGERY 13:09
PROVIDERS: PCP Emergency Medicine; Visit Provider Orthopaedic Surgery
DX: Z01.818 Encounter for other preprocedural examination (principal); E78.00 Pure hypercholesterolemia, unspecified; R94.31 Abnormal electrocardiogram [ECG] [EKG]
CPT/HCPCS: 93005

== ENCOUNTER 2025-05-17 02:07 | Day surgery (SDC) | payer BC, SELFPAY ==
--- NOTE | 2025-05-09 13:06 | SUR.PREOP ---
[facility] has started construction of its new state of the art ER which will open Spring 2026. With this, we anticipate parking may be a challenge for some our surgical patients and families. Parking spaces are limited but are available for all Surgical, obstetrics, and ER patients sharing this lot. If you arrive and find you are having a hard time finding a parking space, please note that we understand the challenges, please drive around the hospital and park near Hospital Entrance 1. When you enter this entrance, you can ask a volunteer to direct or take you back to the surgical waiting area to check in. We appreciate everyone?s understanding of these expected challenges while we build for your future. Report to the Outpatient Waiting Room, entrance under the green pavilion located off [address], at time _830AM__ on date _05/17/25__. Planned Procedure Time: _1030AM__.? Time changes happen often and if your time is changed the preop area will call you the afternoon before. - You and your visitor will be asked to self-screen and do not enter if you have any COVID symptoms. Please call surgeon if you need to reschedule. - A mask is optional within the hospital at this time. Patients may have clear liquids (water, carbonated beverages, clear teas, apple juice) until 3 hours prior to surgery with a maximum of 20 ounces. - No food from midnight until time of surgery and no smoking, or chewing tobacco (or any form of nicotine). No chewing gum, candy or mints. Take only the following medications with a SIP of water on the morning of surgery: __None___ DO NOT STOP ANY OF YOUR OTHER PRESCRIPTION MEDICATIONS PRIOR TO SURGERY EXCEPT THE FOLLOWING Hold all vitamins and supplements for 3 days per anesthesiologist. Medications to discontinue per physician __n/a__ Date to take last dose_05/13/25__ Please no make-up, nail latvian, hairspray, perfume, deodorant, or body powder the day of surgery.? No jewelry (including any body piercings) or valuables the day of surgery, leave them at home.? Please take a shower or bath the night before, or the morning of, surgery with an antibacterial soap.? Wear comfortable, loose fitting clothing.? - Jewelry must be removed prior to entering the operating room.? Rings and piercings that are not removed may be cut off. - The hospital will not accept responsibility for valuables.? - Please leave all valuables, including medications, at home the day of surgery. If you are going home after surgery, a licensed driver courier must drive you home.? - NO public transportation without another adult if you receive anesthesia. - We recommend that an adult stay with you for 24 hours following discharge. - We also recommend that you do not drive, make important decision, drink alcoholic beverages, or take any drugs that were not prescribed by your health care provider for at least 24 hours after your discharge time. Follow any additional instructions given to you from your surgeon. Telephone instructions given to _Tom_and asked if any additional questions and then verbalized understanding. Patient advised to call surgeon office or pre surgery nurse liaison [phone] if any additional questions.
[2025-05-09 13:17] VITALS: BMI 28.8
[2025-05-17] VITALS (9 sets, daily range): BP systolic 103–157; BP diastolic 57–101; PULSE 73–96; RESP 13–18; TEMP 36.7; O2SAT 92–99; BMI 28.9
--- OUTSIDE RECORDS SUMMARY | 2025-05-17 02:10 | XMS_ITS | Patient Health Record ---
Author Organization [facility] Address [address] [place], [place] [address] Care Team Providers Care Casing Puller Name Role Phone SCOTT DELUNA Unavailable [phone] Nahum De La Cruz Unavailable Unavailable Reason For Referral No Information Medications Medication SIG (Take, Route, Frequency, Duration) Notes Start Date End Date Status Medrol Dosepak ORAL Medrol DosepakOr iginal MedicationMedrol Dosepak *Reorder from [employer] for eRx and Interaction Alerts* 04/25/2019 Active [...] Insured Coverage Start Date Coverage End Date [facility] ([facility]) ATTN CLAIMS [address] [place] [address] [id number] ALY MERCADO Self - patient is the insured
--- OUTSIDE RECORDS SUMMARY | 2025-05-17 02:10 | XMS_ITS | Clinical Summary ---
Author Organization [facility] at the [facility] Address [address] [place] [address] Care Team Providers Care Enrichment Director Name Role Phone Nahum De La Cruz MD Primary Care Provider [phone] Encounters Date Type Department Care Team Description 05/10/2025 6:[address] MIXER OPERATOR - 05/10/2025 11:[address] MIXER OPERATOR Hospital Encounter [address] [address] Strain of muscle(s) and tendon(s) of the [...] Read Routine (OP Routine) 05/10/2025 7:[address] MIXER OPERATOR Strain of muscle(s) and tendon(s) of the rotator cuff of left shoulder, initial encounter from Last 3 Months Results * MRI Shoulder Left WO Contrast (05/10/2025 7:[address] MIXER OPERATOR) Anatomical Region Laterality Modality Upper Extremities Left Magnetic Reson ance 05/10/2025 8:[address] MIXER OPERATOR Impressions 05/10/2025 8:[address] MIXER OPERATOR 1. 5 x 3.5 cm full-thickness tear [...] Vikash Huerta M.D. Narrative 05/10/2025 8:[address] MIXER OPERATOR EXAMINATION: 1. MRI left shoulder without contrast [...] Res ult from Last 3 Months Insurance [facility] Care Teams Enrichment Director Relationship Specialty Start Date End Date Nahum De La Cruz MD [address] [place] [id number] PCP - General Family Practice 05/03/25
--- NOTE | 2025-05-17 07:17 | WPDHPUPDATE1 ---
History and Physical Update Update Date/Time: 05/17/25 07:17 History and Physical has been reviewed, including an updated exam of the patient. There are NO changes in the patient's condition. Risks, benefits, and alternatives have been discussed and questions answered. Patient agrees to proceed with procedure.
[2025-05-17] MEDS: ACETAMINOPHEN 500 MG TABLET 1000 MG PO (09:00)
--- NOTE | 2025-05-17 09:52 | P.PNAN_ITS ---
Anes - Initial Pre Proc Eval Procedure: Operation Date: 05/17/25 10:30 Proposed Procedures p Left Shoulder Rotator Cuff Repair - Mejia Michel MD Date/Time: 05/17/25 09:52 Surgeon: Mejia Michel MD Pre Op Diagnosis: left rotator cuff tear Patient Data Age: 60 Gender: M Height: 1.85 m Weight: 99 kg Allergies Allergy/AdvReac Type Severity Reaction Status Date / Time aspirin Allergy Severe Hives Verified 05/11/25 14:15 caffeine Allergy Intermediate PALPITATION Verified 05/11/25 14:15 S Home Medications ?Medication ?Instructions ?Recorded ?Confirmed ?Type multivitamin 1 tablet PO DAILY 09/05/20 1 07/11/24 History loratadine 10 mg tablet (Claritin) 10 mg PO DAILY 12/0405/11/25 History omega-3 fatty acids-vitamin E 1 cap PO DAILY 12/14/20 05/11/25 History 1,000 mg capsule rosuvastatin 40 mg tablet 40 mg PO HS 05/09/25 5 History chlorhexidine gluconate 4 % 1 applic topical ONCE #237 mL 05/10/25 05/11/25 Rx topical liquid (Hibiclens) clindamycin 1 %-benzoyl peroxide 5 1 applic topical DA LIBRA #25 grams 05/10/25 05/11/25 Rx % topical gel oxycodone-acetaminophen 5 mg-325 1 tablet PO Q12H PRN pain #30 tabs 05/16/25 Rx mg tablet oxycodone-acetaminophen 5 mg-325 1 tablet PO Q6H PRN p ain #30 tabs 05/16/25 Rx mg tablet Patient hx anesthesia problems: none Family hx anesthesia problems: none Results Review: All pre-operative results and documents have been reviewed as part of the pre- operative evaluation. [facility] Past Medical History Medical History (Updated 05/17/25 @ 09:52 by Dylan Travis MD) Overweight Hyperlipidemia Arthritis of knee, right Surgical History Surgical History History of arthroscopy of right knee Partial medial meniscectomy December 24, 2020 H/O left knee surgery left ACL 2011 Social History Social History Smoking status: Never smoker Tobacco type: smokeless tobacco Smokeless tobacco user: chewing tobacco Additional smoking assessment comments: chewing tobacco for 10 years Alcohol intake: current Drinks per week: 2 Substance use: never Substance use type: does not use Living arrangements: with family Occupation/Education: occupation Gender identity (if verbalized by the patient): Male Spiritual care concerns: No Anes - Eval Final PreProcedure Day of Procedure 05/17/25 09:52 Patient weight: overweight Heart: regular rate and rhythm Lungs: clear to auscultation Airway: Mallampati scale class II Neurological: alert and oriented Last oral intake: >/= 8 hours ASA classification: II Emergent: no Anesthetic plan: proceed Anesthesia type and monitoring: general ETT and standard monitoring Results Review: All pre-operative results and documents have been reviewed as part of the pre- operative evaluation. Informed Consent: The patient's anesthetic plan and its attendant risks and benefits were discussed with the patient/family/POA. Questions were solicited and answers provided to the satisfaction of the patient/family/POA.
[2025-05-17] MEDS: LACTATED RINGERS 1,000 ML 30 ML IV CONT ×2 (10:15→15:25)
[2025-05-17] MEDS: KETOROLAC 15 MG/ML VIAL (*BKC) IV PUSH (10:15)
--- NOTE | 2025-05-17 10:33 | WPDANESPNB ---
Anes - Peripheral Nerve Block Date/Time: 05/17/25 10:33 I have discussed with the patient/family/POA the placement of a peripheral nerve block for post-operative pain management, including associated risks, benefits, complications, and side effects. Alternative methods of post-operative analgesia were detailed. Questions were solicited and answers provided to the satisfaction of the patient/family/POA. Time-Out: A pre-procedural Time-Out was completed immediately before starting the procedure and confirmed: Patient Identification, Site, Procedure, Patient Position and the Availability of Requisite Equipment. Clinical Indications: Acute post-operative pain management requested by the operative surgeon. Nerve Block Insertion Note Anes-nerve block: interscalene left Patient position: supine Skin prep: chlorhexidine Needle: 22 gauge, stimulating, insulated echogenic needle. Needle length: 50 mm Technique: ultrasound Injectate: bupivacaine 0.5% with epi 5 mcg/ml (30cc ) and dexamethasone (mg) (8mg) Observations: tolerated well Complications: none Procedure start time:: 1028 Procedure end time:: 2
[2025-05-17] MEDS: ceFAZolin 2 GM in SODIUM CHLORIDE 0.9% IV 50 ML 100 ML IVPB (10:48)
[2025-05-17] MEDS: VANCOMYCIN 1,500 MG/NS 500 ML 1,500 MG/500 ML BAG 333.33 MG IVPB (14:21)
--- NOTE | 2025-05-17 15:37 | W.PM.PROC2 ---
Procedure Note - Detailed Date of Procedure 05/17/25 Pre-op Diagnosis left rotator cuff rupture, left posterior labrum tear Post-op Diagnosis Same Procedure Performed LEFT SHOULDER SCOPE WITH LABRAL DEBRIDEMENT AND CHONDROPLASTY AND SYNOVECTOMY OPEN ROTATOR CUFF REPAIR Surgeon Mejia Michel MD Anesthesia General Description of Procedure THE PATIENT WAS TAKEN TO THE OPERATING ROOM AND THEN INTUBATED AND PLACED IN THE BEACH CHAIR POSITION. THE LEFT UPPER EXTREMITY WAS PREPPED AND DRAPED IN THE NORMAL STERILE FASHION. PORTALS WERE PLACED BOTH POSTERIORLY AND ANTERIORLY IN THE STANDARD FASHION. A CAMERA WAS INTRODUCED. THERE WAS A LARGE HEMATOMA. 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 THERE WS NO FRACTURE. THERE WAS EXTENSIVE SYNOVITIS. THERE WAS A MASSIVE ROTATOR CUFF RUPTURE WHICH INCLUDED THE TERES MINOR WELL THE SUPRASPINATUS AND INFRASPINATUS TENDONS. SYNOVECTOMY WAS PREFORMED. THE ANTERIOR LABRUM AND BICEPS ANCHOR WERE INTACT. THE BICEPS TENDON WAS INTACT. THE POSTERIOR LABRUM SHOWED SOME SUPERFICIAL FRAYING AND HEMATOMA AT THE 10 TO 11 O'CLOCK REGION BUT THERE WAS NO DETACHMENT FROM THE GLENOID. THE POSTERIOR THE SUPERFICIAL TEAR WAS DEBRIDED WITH A SHAVER UNTIL THERE WAS A SMOOTH SURFACE. CAMERA AND SHAVER WAS REMOVED FROM THE SHOULDER JOINT. AN INCISION WAS MADE IN BETWEEN THE ANTEROLATERAL ACROMION AND THE AC JOINT. THE FASCIA WAS IDENTIFIED. NEXT A MINI OPEN INCISION WAS MADE THROUGH THE DELTOID MUSCLE EXPOSING THE SUBACROMIAL SPACE. A LIMITED ACROMIOPLASTY WAS PREFORMED. THE ROTATOR CUFF WAS IDENTIFIED. THERE WAS A COMPLETE RUPTURE OF THE ROTATOR CUFF. THE WOUND WAS IRRIGATED THOROUGHLY. SOME OF THE TEAR EDGES WERE DEBRIDEMENT TO GOOD TENDON. THE GREATER TUBEROSITY WAS DEBRIDED TO BLEEDING BONE. 4 ARTHREX SUTURE ANCHORS WERE PLACED IN TO GOOD BONE AND HAD VERY GOOD BITES. GANESH-CATRACHO TYPE REPAIRS AND MATTRESS TYPE REPAIRS WERE DONE TO THE ROTATOR CUFF AND THERE WAS GOOD APPROXIMATION TO THE GREATER TUBEROSITY. THE REPAIR WAS EXCELLENT. THERE WAS NO IMPINGEMENT ON THE REPAIR FROM THE ACROMION WITH RANGE OF MOTION. THE WOUND WAS IRRIGATED WITH COPIOUS AMOUNTS OF ANTIBIOTIC SOLUTION. THE DELTOID MUSCLE WAS REPAIRED WITH #2 FIBER WIRE AND 0 VICRYL SUTURE. THE SUBCUTANEOUS LAYER WAS APPROXIMATED WITH 2-0 VICRYL. THE SKIN WAS APPROXIMATED WITH 3-0 QUIL AND DERMABOND. THE ARTHROSCOPIC PORTALS WOUNDS WERE APPROXIMATED WITH 3-0 NYLON SUTURES. STERILE DRESSING WAS APPLIED. PATIENT WAS EXTUBATED. Estimated Blood Loss 75 Complications No immediate complications Condition Stable Disposition PACU
[2025-05-17] MEDS: fentaNYL CITRATE INJ (*CRX) 100 MCG/2 ML VIAL 25 MCG IV PUSH (16:09)
[2025-05-17] MEDS: oxyCODONE HCL (*CRX) 5 MG TAB IR PO (16:43)
== END 2025-05-17 17:45 | disposition home or self-care (01) ==
PROVIDERS: PCP Emergency Medicine; Visit Provider Orthopaedic Surgery
PROC: (CPT 23420; principal; 2025-05-17 10:30)
DX: S46.012A Strain of muscle(s) and tendon(s) of the rotator cuff of left shoulder, initial encounter (principal); M94.212 Chondromalacia, left shoulder; M65.812 Other synovitis and tenosynovitis, left shoulder; X50.0XXA Overexertion from strenuous movement or load, initial encounter; G89.18 Other acute postprocedural pain; E78.5 Hyperlipidemia, unspecified; M17.11 Unilateral primary osteoarthritis, right knee; F17.220 Nicotine dependence, chewing tobacco, uncomplicated; Z79.891 Long term (current) use of opiate analgesic; Z98.890 Other specified postprocedural states
CPT/HCPCS: 64415; 23412; 29821; J0690; A9270; C1713; J0330; J1100; J1596; J1885; J2003; J2250; J2371; J2405; J2704; J3010; J3373; J7120